=== PATIENT | female | born 1955 | race Caucasian/White ===

== ENCOUNTER 2016-08-24 05:33 | Observation (INO) ==
[2016-08-24] MEDS: MORPHINE IV ONE ×2 (06:06→06:25)
[2016-08-24] MEDS ORDERED: NS 1,000 ML IV ONE (06:06)
[2016-08-24] MEDS: ZOFRAN IV ONE ×2 (06:06→06:26)
[2016-08-24 06:09] LABS: MANUAL DIFF NEEDED? NO; URINE MICRO REVIEW NEEDED? NO; URINE SOURCE CLEAN CATCH
[2016-08-24 06:13] LABS: BILIRUBIN URINE NEGATIVE (NEGATIVE); BLOOD URINE SMALL (NEGATIVE); COLOR YELLOW; GLUCOSE URINE NEGATIVE (NEGATIVE); LEUKOCYTES URINE TRACE (NEGATIVE); NITRITE URINE NEGATIVE (NEGATIVE); PH URINE 5.5; PROTEIN URINE TRACE mg/dL (NEGATIVE); SP GRAVITY URINE 1.018; TURBIDITY URINE HAZY (CLEAR); UROBILINOGEN URINE NORMAL (NORMAL)
[2016-08-24 06:15] LABS: UR EPITHELIAL CELLS >10 /HPF (<10); URINE BACTERIA NEGATIVE /HPF; URINE CULTURE NEEDED? YES; URINE RBC <10 /HPF (<10); URINE WBC <10 /HPF (<10)
[2016-08-24 06:35] LABS: AGAP 14; ALBUMIN 4.4 g/dL (3.5-5.0); ALKALINE PHOSPHATASE 89 U/L (32-104); AMYLASE 29 U/L (20-200); BUN 12 mg/dL (8-22); CALCIUM 9.2 mg/dL (8.8-10.2); CHLORIDE 99 mmol/L (98-107); COSMO 274; GOT 23 U/L (10-30); GPT 30 U/L (10-36); LIPASE 27 U/L (13-60); POTASSIUM 3.9 mmol/L (3.5-5.1); SODIUM 137 mmol/L (136-145); TCO2 24 mmol/L (25-35); TOTAL BILIRUBIN 0.88 mg/dL (0.20-1.00); TOTAL PROTEIN 7.4 g/dL (6.3-8.3)
[2016-08-24 06:36] LABS: BASO% 0.2 % (0.0-0.8); EOS# 0.18 X1000 (0.0-0.7); EOS% 1.2 % (0.0-10.0); HEMATOCRIT 41.2 % (37.0-47.0); IMM GRAN# 0.03 X1000 (0.0-0.04); IMM GRAN% 0.2 % (0.0-0.5); LYMPH# 4.05 X1000 (1.2-3.4); LYMPH% 26.2 % (20.5-51.1); MCV 85.3 FL (81-99); MONO# 1.28 X1000 (0.11-0.59); MONO% 8.3 % (1.7-9.3); MPV 11.5 FL (7.4-10.4); NEUT% 63.9 % (42.2-75.2); PLT 211 X1000 (130-400); RBC 4.83 XMIL (4.2-5.4)
--- NOTE | 2016-08-24 07:22 | Diag Imaging Result Doc PS360 ---
EXAM: ABDOMEN FLAT/UPRIGHT HISTORY: ABDOMINAL PAIN TECHNIQUE: Flat and upright abdomen two views COMMENT: There is some stool throughout the colon. There is no evidence of bowel dilatation organomegaly or mass. There is some evidence of previous surgery to the rectum. There is been cholecystectomy. IMPRESSION: Constipation. Electronically signed by Billy Rizo 08/24/2016 7:19 AM
--- NOTE | 2016-08-24 07:40 | Diag Imaging Result Doc PS360 ---
EXAM: CT ABD/PELVIS W/ IV CONT ONLY HISTORY: LLQ/L flank pain TECHNIQUE: CT of the abdomen and pelvis with intravenous contrast and and the dose reduction (clarity.) COMMENT: There are some atelectatic or fibrotic changes in the posterior costophrenic sulci. There is no evidence of abdominal aortic aneurysm. The mesenteric arteries and renal arteries are patent. There is been cholecystectomy. The adrenal glands are not enlarged. The liver and spleen are unremarkable. The pancreas is normal in appearance. The kidneys are without evidence of hydronephrosis or mass. There is stool throughout much of the colon. There are scattered diverticula. There is inflammation surrounding the mid descending colon with mucosal thickening and narrowing of the lumen. This may be due to inflammatory changes arising from diverticulitis, however neoplastic disease cannot be entirely excluded. The small bowel is not distended. There is no evidence of significant adenopathy. CT of the pelvis: There is diverticulosis in the sigmoid colon without evidence of diverticulitis. The appendix is unremarkable. There are no masses and there is no evidence of abnormal fluid. There is been hysterectomy. The regional skeleton appears to be intact. IMPRESSION: Diverticulitis in the descending colon. The possibility of an underlying mucosal neoplastic lesion cannot be excluded. The findings were discussed with Nam Morris MD at 08/24/2016 7:33 AM. Electronically signed by Billy Rizo 08/24/2016 7:38 AM
--- NOTE | 2016-08-24 08:23 | PROVIDER DOCUMENTATION ---
HPI-Abdominal Pain/GI Problem - General Chief Complaint: Flank Pain Stated Complaint: SIDE PAIN Time Seen by Provider: 08/24/16 06:05 Source: patient Allergies/Adverse Reactions: Patient Allergies Allergy/AdvReac Type Severity Reaction Status Date / Time cephalexin monohydrate * Allergy RASH Verified 08/24/16 05:54 [From Keflex] Home Medications: Home Medication List Medication Instructions Recorded Confirmed Last Taken Type Citalopram Hydrobromide [Celexa] 20 mg PO DAILY 08/23/16 08/24/16 08/23/16 07: 00 History Rizatriptan [Maxalt] 10 mg PO PRN PRN 08/23/16 08/24/16 Unknown History - History of Present Illness-ABD Nature of Presenting Problems: L flank and LLQ pain sicne yesterday. H/o Diverticulitis. Denies F/C/N/V/D. Pt is scheduled to have a thyroid surgery by Dr. Chaney in 2 days. Abdominal Pain Onset Location: reports: LLQ, flank (L) Pain Radiation: reports: no radiation Quality of Pain: reports: aching, cramping Severity in ED: reports: moderate Onset/Duration: reports: 24 hours ago Timing: reports: still present, constant Activities at Onset: reports: none, light activity Exposure to sick contacts?: No Modifying Factors: worse with: massage, movement, vomiting Associated Symptoms: reports: denies symptoms Last BM: unsure Dark Stools Present?: reports: none noticed Rectal Bleeding: reports: none Rectal Pain: reports: none Review of Systems - Adult - REVIEW OF SYSTEMS - ADULT Constitutional: reports: no symptoms reported. denies: fever, fatique Eyes: reports: no symptoms reported Ears, Nose, Mouth & Throat: reports: no symptoms reported Cardiovascular: reports: no symptoms reported Respiratory: reports: no symptoms reported Gastrointestinal: reports: see HPI, abdominal pain. denies: nausea, rectal bleeding, vomiting Genitourinary: reports: no symptoms reported Musculoskeletal: reports: no symptoms reported Integumentary: reports: no symptoms reported Neurological: reports: no symptoms reported Psychiatric: reports: no symptoms reported Endocrine: reports: no symptoms reported Hematologic/Lymphatic: reports: no symptoms reported Allergic/Immunologic: reports: no symptoms reported All Other Systems: Reviewed and Negative Past History - Adult - PAST MEDICAL HISTORY-ADULT Review of Records: reports: Old Records Reviewed, Nursing Assessment Review, Medications Reviewed, Social history reviewed & non-contributory. Cardiovascular: reports: hyperlipidemia Other Conditions: reports: denies history - PRIOR SURGERIES/PROCEDURES Surgical/Procedure History: reports: cholecystectomy, hysterectomy - PRIOR HOSPITALIZATIONS Prior Hospitalizations: reports: none - IMMUNIZATION STATUS Childhood Immunizations: See Nurse Assessment Flu Vaccine: See Nurse Assessment - FAMILY HISTORY Family History: reviewed, not pertinent Physical Exam-General - PHYSICAL EXAM-ADULT Initial Vital Signs Reviewed: Yes - CONSTITUTIONAL General Appearance: appears well, alert, no apparent distress - HEAD, EARS, NOSE, MOUTH & THROAT HENMT: normocephalic/atraumatic, moist mucous membranes - NECK Neck: non-tender, full range of motion, supple, normal inspection - RESPIRATORY Respiratory: chest non-tender, lungs clear, normal breath sounds, no pleuratic chest pain, no respiratory distress, no accessory muscle use, respiratory distress - CARDIOVASCULAR Cardiovascular: normal peripheral pulses, regular rate, rhythm, no edema, no gallop - GASTROINTESTINAL (ABDOMEN) Abdominal Exam: normal bowel sounds, soft, no organomegaly, guarding, rigid, rebound, tenderness (Diffused L flank and LLQ tenderness, no guarding and no rebound.). negative: prominent aortic pulsations - LYMPHATIC Lymphatic: no adenopathy - MUSCULOSKELETAL Back Exam: normal inspection, no CVA tenderness Extremity: normal range of motion, non-tender, normal gait, normal inspection - SKIN Integumentary: normal color, normal turgor, warm/dry - NEUROLOGIC Neurologic: no motor/sensory deficits, abnormal gait - PSYCHIATRIC Psych/Mental Status: normal mood/affect, normal thought content, normal thought process, oriented x 3 Progress - PLAN OF CARE/RESULTS Progress/Plan/Lab Results: Vital Signs - 8 hr 08/24/16 05:37 08/24/16 07:07 Temperature 99.4 F Pulse Rate 111 H 91 H Respiratory Rate 16 20 Blood Pressure 105/60 127/69 O2 Sat by Pulse Oximetry 100 99 Laboratory Results - last 24 hr 08/24/16 08/24/16 08/24/16 05:55 05:55 05:55 WBC 15.47 H RBC 4.83 Hgb 14.0 Hct 41.2 MCV 85.3 MCH 29.0 MCHC 34.0 RDW Std Deviation 13.3 Plt Count 211 MPV 11.5 H Immature Gran % (Auto) 0.2 Neut % (Auto) 63.9 Lymph % (Auto) 26.2 Hill % (Auto) 8.3 Eos % (Auto) 1.2 Baso % (Auto) 0.2 Immature Gran # (Auto) 0.03 Neut # (Auto) 9.90 H Lymph # (Auto) 4.05 H Hill # (Auto) 1.28 H Eos # (Auto) 0.18 Baso # (Auto) 0.03 Sodium 137 Potassium 3.9 Chloride 99 Carbon Dioxide 24 L Anion Gap 14 BUN 12 Creatinine 0.7 Estimated GFR/1.73 m2 > 60 BUN/Creatinine Ratio 17 Glucose 106 H Calculated Osmolality 274 Calcium 9.2 Total Bilirubin 0.88 AST 23 ALT 30 Alkaline Phosphatase 89 Troponin T Total Protein 7.4 Albumin 4.4 Globulin 3.0 Albumin/Globulin Ratio 1.5 Amylase 29 Lipase 27 Urine Source CLEAN CATCH Urine Color YELLOW Urine Turbidity HAZY Urine pH 5.5 Ur Specific Commerce 1.018 Urine Protein TRACE A Ur Glucose (Stick) NEGATIVE Ur Ketones (Stick) NEGATIVE Urine Blood SMALL A Urine Nitrite NEGATIVE Urine Bilirubin NEGATIVE Urobilinogen Dipstick NORMAL Urine Leukocytes TRACE A Urine WBC (Auto) <10 Urine RBC (Auto) <10 U Epithel Cells (Auto) >10 A Urine Bacteria (Auto) NEGATIVE 08/24/16 05:55 WBC RBC Hgb Hct MCV MCH MCHC RDW Std Deviation Plt Count MPV Immature Gran % (Auto) Neut % (Auto) Lymph % (Auto) Hill % (Auto) Eos % (Auto) Baso % (Auto) Immature Gran # (Auto) Neut # (Auto) Lymph # (Auto) Hill # (Auto) Eos # (Auto) Baso # (Auto) Sodium Potassium Chloride Carbon Dioxide Anion Gap BUN Creatinine Estimated GFR/1.73 m2 BUN/Creatinine Ratio Glucose Calculated Osmolality Calcium Total Bilirubin AST ALT Alkaline Phosphatase Troponin T < 0.010 Total Protein Albumin Globulin Albumin/Globulin Ratio Amylase Lipase Urine Source Urine Color Urine Turbidity Urine pH Ur Specific Commerce Urine Protein Ur Glucose (Stick) Ur Ketones (Stick) Urine Blood Urine Nitrite Urine Bilirubin Urobilinogen Dipstick Urine Leukocytes Urine WBC (Auto) Urine RBC (Auto) U Epithel Cells (Auto) Urine Bacteria (Auto) Orders Category Date Time Status Saline Loc DIRECTED Care 08/24/16 05:58 Active Saline Loc DIRECTED Care 08/24/16 06:06 Active NPO Diet 08/24/16 05:58 Completed NPO Diet 08/24/16 06:06 Active ABDOMEN FLAT/UPRIGHT [RAD] Stat Exams 08/24/16 06:[address] ABD/PELVIS W/ IV CONT ONLY [CT] Stat Exams 08/24/16 07:00 Completed AMYLASE [CHEM] Stat Lab 08/24/16 05:55 Completed CBC WITH ELECTRONIC DIFF [HEME] Stat Lab 08/24/16 05:55 Completed COMPREHENSIVE METABOLIC PANEL [CHEM] Stat Lab 08/24/16 05:55 Completed LIPASE [CHEM] Stat Lab 08/24/16 05:55 Completed TROPONIN T Stat Lab 08/24/16 05:55 Completed URINALYSIS W/POSS RFLX CULT-1 [URINALYSIS] Stat Lab 08/24/16 05:55 Completed URINE CULTURE [RM] Routine Lab 08/24/16 06:18 Received 0.9% Sodium Chloride Inj [Ns] 1,000 ml Med 08/24/16 06:06 Discontinued IV 999 mls/hr Morphine Med 08/24/16 06:06 Discontinued 4 mg IV NOW ONE Ondansetron [Zofran] Med 08/24/16 06:06 Discontinued 4 mg IV NOW ONE Result Diagrams: 08/24/16 05:55 08/24/16 05:55 - CT/MRI 1 CT Study: Abdomen Impression: Abnormal CT Results: See Radiology report MRI Study: Abdomen - CONSULTS/PCP/HOSPITALIST Notification #1 *Consult/PCP/Hospitalist*: Dr. Shepard Reason/Comments: Will admit to Dr. Shepard Consult Disposition: Will see in ED, Admit Departure - Departure Date of Disposition Decision: 08/24/16 Time of Disposition Decision: 08:31 DIAGNOSIS: Diverticulitis Disposition: ADMITTED INPATIENT 09 Certified Medical Emergency: Emergent Condition: Stable - Critical Care Note This patient required my direct & personal management of CC.: No
[2016-08-24] MEDS ORDERED: LEVAQUIN 750 MG/D5W 750 MG/150 ML IVPB IV ONE (08:31)
[2016-08-24] MEDS ORDERED: FLAGYL 500 MG/NS 500 MG/100 ML IVPB IV ONE (08:31)
[2016-08-24] MEDS ORDERED: MORPHINE IV PRN (09:15)
[2016-08-24] MEDS ORDERED: ZOFRAN IV PRN (09:15)
--- NOTE | 2016-08-24 10:08 | EKG Report ---
Test Performed on : 08/24/2016 09:19:05 AM Test Reason : side pain Blood Pressure : / mmHG Vent. Rate : 092 BPM Atrial Rate : 092 BPM P-R Int : 164 ms QRS Dur : 072 ms QT Int : 346 ms P-R-T Axes : 060 045 058 degrees QTc Int : 427 ms Normal sinus rhythm. Normal ECG When compared with ECG of 23-AUG-2016 08:30, No significant change was found Confirmed by Chivo SHANKS, Constantino Burgso ([id number]) on 08/27/2016 7:50:49 AM
[2016-08-24] MEDS: D5 1/2 NS 1,000 ML IV SCH (10:49)
--- NOTE | 2016-08-24 14:35 | CONSULTATION ---
DATE OF CONSULTATION: 08/24/2016 REASON FOR EVALUATION: Abdominal pain. HISTORY OF PRESENT ILLNESS: This is a 61-year-old lady who had history of diverticulosis for the last 15 years. Fifteen years ago she had an attack of diverticulitis. At that time, the patient was given p.o. antibiotics and was sent home with good relief she had a colonoscopy more than 10 years ago which was said to be negative apart from diverticulosis. Yesterday she woke up with some abdominal pain and as the day progressed she had more abdominal pain, mainly in the left lower quadrant and mostly she has constipation, that has not changed. The patient also felt nauseous and queasy but not had any emesis. The pain became too bad this morning and she decided to come to the emergency room. She was evaluated in the emergency room with physical examination and blood work and she was finally admitted by Dr. Harris with his diagnosis of acute diverticulitis. The patient's WBC count was elevated at 15.[address] scan revealed that there is some inflammation around the descending colon which was secondary to probably diverticulitis. The sigmoid diverticula did not have any inflammation. The patient is doing better today after getting antibiotics and some morphine for pain and she is quite comfortable. She said that she had some fever yesterday but today she did not feel feverish but in the emergency room when vital signs were taken the temperature was 99.5 degrees. The patient is very anxious and she does not want to be closed in in a room. She would like to go home on p.o. antibiotics. I said that at least we have to keep her for 1 night so that we can reevaluate her tomorrow morning to decide about that. The patient said that if we do not agree with her she might even go home on her own. PAST MEDICAL HISTORY: She had a thyroid problem which is being evaluated and apparently she had a thyroid cyst. She has insomnia which started the investigation for causes of insomnia and they found out that she was quite anxious and then ultrasound of the neck was done after examination of the thyroid and cysts were found on both lobes of the thyroid and Dr. Harris was planning to operate on her when this happened. There is no other medical problem. FAMILY HISTORY: There is no history of any GI cancer or any other cancer in the family. SOCIAL HISTORY: Patient does not abuse alcohol or tobacco. She is . She has 2 children. ALLERGIES: She is allergic to cephalexin, monohydrate. REVIEW OF SYSTEMS: GI: Has usually constipation. The abdominal pain is only recent. She has no history of any diarrhea. No blood in stool or black stool. She has nausea present with no vomiting. PHYSICAL EXAMINATION: General: The patient is alert, oriented x3. Vital Signs: The temperature is 97.4 degrees, pulse rate is 96 per minute, respiratory rate is 16, blood pressure is 98/82. General: The patient was anxious and trying to cry when I was telling her that she may need to be kept in the hospital for over the weekend. Skin: Warm and dry. Mucous membranes are moist. Neck: Supple. There is no thyromegaly. Cardiac: Both heart sounds are heard. Rhythm is regular. No murmur. Lungs: Clear to percussion and auscultation. Abdomen: Soft. No masses. There is tenderness in the left lower quadrant but very little tenderness. No masses felt. Bowel sounds are heard. Extremities: Free of any edema. LAB DATA: WBC count is 15.47, hemoglobin 14, hematocrit 41.2, platelet count is 211,000. Sodium 137, potassium 3.9, chloride 99, CO2 is 24, BUN is 12, creatinine is 0.7, glucose is 106. LFTs are all normal. IMPRESSION: Acute diverticulitis, cannot rule out malignancy. RECOMMENDATION: The patient he is already on antibiotics which should be continued and on clear liquid diet. We will evaluate tomorrow and decide whether we can comply with the patient's wish of going home and getting an outpatient colonoscopy done. I will discuss the matter with Dr. Harris. cc: Nam Harris MD
[2016-08-24] MEDS: FLAGYL 1000 MG/NS 1,000 MG/200 ML IVPB IV SCH (18:45)
[2016-08-25] MEDS: FLAGYL 1000 MG/NS 1,000 MG/200 ML IVPB IV SCH (03:42)
[2016-08-25 03:51] VITALS: BP 136/70
[2016-08-25] MEDS: D5 1/2 NS 1,000 ML IV SCH (06:48)
--- NOTE | 2016-08-25 08:27 | PROGRESS NOTE ---
DATE: 08/25/2016 SUBJECTIVE: This patient is admitted with what appeared to be acute diverticulitis of the descending colon. She is doing quite fine with no pain. She had several bowel movements yesterday and last night, and she is very comfortable and feeling hungry. She has no fever or chills. She would like to go home and get outpatient colonoscopy. OBJECTIVE: General: On physical examination, the patient is alert, oriented x3. Vital Signs: Pulse is 78 per minute, respiratory rate is 16, blood pressure is 136/70, temperature is 97.6 degrees. Abdominal Examination: Unremarkable. There is no evidence of any tenderness at all or any masses. Bowel sounds are normally heard. IMPRESSION: Improvement in acute diverticulitis of the left colon. RECOMMENDATIONS: This patient can be discharged home on a low residue diet and antibiotics p.o. to be seen by me in the office next week. I have given that information to the office, and the patient will come and see me. I also discussed the case with Dr. Harris. He will be making rounds and discharging the patient. cc: Nam Harris MD
[2016-08-25] MEDS ORDERED: LEVAQUIN 500 MG/D5W 500 MG/100 ML IVPB IV SCH (11:00)
--- NOTE | 2016-08-29 09:39 | HISTORY AND PHYSICAL ---
DIAGNOSIS: Acute diverticulitis. PLAN: Admission, IV antibiotics, GI consultation. The patient is a 61-year-old white female, known to me from recent evaluation for thyroid nodule. She was scheduled for thyroid surgery next week. However, she was seen in the emergency room with lower abdominal pain. CT scan reveals a segmental diverticulitis, possible inflammatory versus neoplastic process in the descending sigmoid. The patient has white count [place] [id number]. She did have some tenderness, but no guarding or rebound. No evidence of acute abdomen. PAST HISTORY: Otherwise negative. PHYSICAL EXAMINATION: GENERAL: Physical exam reveals a middle-aged white female in moderate discomfort. HEAD AND NECK EXAM: She is normocephalic, atraumatic. There is a palpable thyroid nodule in the lower pole on the right side. CHEST: Chest is clear. BREASTS AND AXILLARY: Negative. ABDOMEN: Protuberant. Some tenderness in the left side, but no rebound or guarding. : Negative. NEUROLOGICAL: Neurologically intact. IMPRESSION: Bout of either acute diverticulitis, possible a neoplastic process. PLAN: Is admission, IV antibiotics. GI consultation. Will likely tried a cool things off. I have canceled her thyroid surgery for now. Will just keep the patient home on the week or two of oral antibiotics and then arrange a colonoscopy with Dr. Ruby. CONSULTATIONS: Donya Ruby MD cc: Nam Harris MD
== END 2016-08-25 09:36 | disposition home or self-care (01) ==
LOC: 4N 05:33 → ED 05:33
PROVIDERS: ADMIT Surgery; ATTEND Surgery